=== PATIENT | male | born 2000 | race Caucasian/White ===

== ENCOUNTER → 2022-07-23 11:13 | Outpatient (BNVA) | payer OTHER, SELFPAY | PROVIDERS: Family Provider Family Medicine; PCP Family Medicine; Visit Provider Family Medicine | DX: Z13.6 Encounter for screening for cardiovascular disorders (principal); R60.0 Localized edema; M25.562 Pain in left knee; G89.29 Other chronic pain | CPT/HCPCS: 80053; 80061; 85025 ==

== ENCOUNTER 2022-09-03 16:16 | Emergency (ER) | payer OTHER, SELFPAY ==
[2022-09-03 16:38] VITALS: BP 150/89; PULSE 119; RESP 15; TEMP 37.4; O2SAT 97
--- NOTE | 2022-09-03 16:58 | XRR_ITS ---
PROCEDURE INFORMATION: Exam: XR Chest Exam date and time: 09/03/2022 5:12 PM Age: 22 years old Clinical indication: Chest wall pain; Additional info: Cough TECHNIQUE: Imaging protocol: Radiologic exam of the chest. Views: 1 view. COMPARISON: No relevant prior studies available. FINDINGS: Lungs: Unremarkable. No consolidation. Pleural spaces: Unremarkable. No pleural effusion. No pneumothorax. Heart/Mediastinum: Unremarkable. No cardiomegaly. Bones/joints: Unremarkable. XR/XR chest 1V portable [id number] IMPRESSION: No acute findings.
--- NOTE | 2022-09-03 16:59 | ED_ITS ---
HPI - Chest Pain General: Chief Complaint: Chest Pain Stated Complaint: chest pain, lightheaded and high BP Time Seen by Provider: 09/03/22 16:51 History of Present Illness: Patient comes in with cold symptoms including cough, congestion, fever, lightheadedness, and chest pain that started this morning. Describes the chest pain as sharp, intermittent, midsternal. States he woke up this morning not feeling well. Denies any sick contacts. Patient does not smoke, has no cardiac history, has no family history of coronary artery disease. Associated symptoms: Reports fever(s); Deny abdominal pain, dyspnea, nausea, palpitations or vomiting Review of Systems Const: Reports: fever(s) and body aches Eyes: Denies: change in vision or blurry vision ENMT: Denies: throat pain or odynophagia Card: Reports: chest pain; Denies: palpitations Resp: Reports: non-productive cough; Denies: dyspnea GI: Denies: abdominal pain, nausea or vomiting : Denies: flank pain or dysuria Musc: Denies: neck pain or back pain Skin/Breast: Denies: rash or pruritus Neuro: Reports: headache(s); Denies: numbness in extremities Psych: Denies: anxiety or change in appetite Endo: Denies: polyuria or excessive sweating PFSH ED PFSH: Medical History (Updated 09/03/22 @ 18:20 by Иван Raza MD) No significant past medical history Surgical History (Updated 07/23/22 @ 11:00 by Xiomara Thomason DO) History of tonsillectomy Social History Smoking and tobacco status: never smoked Physical Exam Const: COMMON NORMALS: no acute distress, patient oriented x3, healthy appearing and alert HENMT: COMMON NORMALS: normocephalic and atraumatic HEAD & SCALP: norm ocephalic and atraumatic Eye: COMMON NORMALS: Equal, round and reactive pupils present and EOMs intact bilaterally PUPIL: Yes Equal, round and reactive pupils present OTHER: Bilateral glassy eyed appearance Neck/C-Spine: COMMON NORMALS: full ROM and supple Resp: COMMON NORMALS: normal respiratory effort, No retractions and No use of accessory muscles Cardio: COMMON NORMALS: regular rhythm RHYTHM: regular rhythm OTHER: Tachycardia GI: COMMON NORMALS: Normal to inspection, nondistended, normoactive bowel sounds present, Soft to palpation and non-tender PALPATION: Yes Soft to palpation Back/Pelvis: COMMON NORMALS: thoracic and lumbar spine normal to inspection and no thoracic nor lumbar tenderness Extremity: COMMON NORMALS: normal to inspection and full ROM Neuro: COMMON NORMALS: patient oriented x3 SENSORIUM/ORIENTATION: Yes alert Psych: COMMON NORMALS: mental status grossly normal and cooperative Skin: COMMON NORMALS: no rashes or lesions noted and no wounds GENERAL SKIN EXAM: no rashes or lesions noted Course Vital Signs: Vital signs: Vital Signs Temperature 99.3 F 09/03/22 16:38 Pulse Rate 110 H 09/03/22 18:15 Respiratory Rate 16 09/03/22 18:15 Blood Pressure 120/89 09/03/22 18:15 Pulse Oximetry 99 09/03/22 18:15 Oxygen Delivery Me thod 09/03/22 18:15 MDM - Chest Pain Medical Decision Making Patient comes in with cold symptoms including cough, congestion, fever, lightheadedness, and chest pain that started this morning. Describes the chest pain as sharp, intermittent, midsternal. States he woke up this morning not feeling well. Denies any sick contacts. Patient does not smoke, has no cardiac history, has no family history of coronary artery disease. On physical exam he has bilateral glassy eyed appearance. Will check labs, give IV fluids, check x- ray, and reassess. On reassessment I talked to the patient about the test results. Encouraged aggressive fluid hydration, and discharged with precautions return for worsening or changing symptoms. Lab Data 09/03/22 17:02 09/03/22 17:02 Radiology Impressions Chest X-Ray 09/03/22 16:58 IMPRESSION: No acute findings. Laboratory Results WBC 7.6 10^3/uL (4.0-10.0) 09/03/22 17:02 RBC 4.97 10^6/uL (4.1-5.3) 09/03/22 17:02 Hgb 14.7 g/dL (11.7-16.6) 09/03/22 17:02 Hct 43.9 % (42.0-52.0) 09/03/22 17:02 MCV 88.3 fl (80-94) 09/03/22 17:02 MCH 29.6 pg (28.0-34.0) 09/03/22 17:02 MCHC 33.5 g/dL (30.0-36.0) 09/03/22 17:02 RDW 12.5 % (12.1-15.1) 09/03/22 17:02 Plt Count 220 10^3/cmm (130-400) 09/03/22 17:02 MPV 9.7 fL (7.4-10.4) 09/03/22 17:02 Neut % (Auto) 66.2 % 09/03/22 17:02 Lymph % (Auto) 20.9 % 09/03/22 17:02 [place] % (Auto) 7.8 % 09/03/22 17:02 Eos % (Auto) 4.2 % 09/03/22 17:02 Baso % (Auto) 0.5 % 09/03/22 17:02 Neut # (Auto) 4.99 10^3/uL (1.8-7.7) 09/03/22 17:02 Lymph # (Auto) 1.6 10^3/uL (0.8-4.8) 09/03/22 17:02 [place] # (Auto) 0.6 10^3/uL (0.2-0.9) 09/03/22 17:02 Eos # (Auto) 0.3 10^3/uL (0.0-0.8) 09/03/22 17:02 Baso # (Auto) 0.0 10^3/uL (0.0-0.1) 09/03/22 17:02 Nucleated RBC % (auto) 0 % 09/03/22 17:02 Nucleated RBCs # 0.0 /100WBC 09/03/22 17:02 Sodium 140 mmol/L (136-145) 09/03/22 17:02 Potassium 3.7 mmol/L (3.5-5.1) 09/03/22 17:02 Chloride 104 mmol/L (98-107) 09/03/22 17:02 Carbon Dioxide 26 mmol/L (22-29) 09/03/22 17:02 Anion Gap 13.7 (5-19) 09/03/22 17:02 BUN 9 mg/dL (6-20) 09/03/22 17:02 Creatinine 1.0 mg/dL (0.7-1.2) 09/03/22 17:02 GFR Calculation 92.6 mL/min (90-130) 09/03/22 17:02 Glucose 91 mg/dL (65-115) 09/03/22 17:02 Calculated Osmolality 288 mOsm/kg (285-295) 09/03/22 17:02 Calcium 9.4 mg/dL (8.5-10.5) 09/03/22 17:02 Total Bilirubin 0.5 mg/dL (0.15-1.2) 09/03/22 17:02 AST 40 U/L (0-40) 09/03/22 17:02 ALT 73 U/L (0-41) H 09/03/22 17:02 Alkaline Phosphatase 83 U/L (40-130) 09/03/22 17:02 Troponin T Baseline 6 ng/L (0-15) 09/03/22 17:02 Total Protein 7.3 g/dL (6.6-8.7) 09/03/22 17:02 Albumin 4.3 g/dL (3.5-5.2) 09/03/22 17:02 Globulin 3.0 g/dL (1.3-4.6) 09/03/22 17:02 Discharge Plan Discharge Patient Disposition: Home Clinical Impression: Viral illness Condition: Stable Prescriptions: No Action No Known Home Medications Discharge Orders: Discharge ED (Routine); Ordered 09/03/22 Ordered By: Иван Raza Referrals: Pooja Ricks MD [Primary Care Provider] - Stand Alone Forms: Work/School Release Coding Level of Care Code ED Certified Nurse Midwife for Chg Fwd Exam Comprehensive
--- NOTE | 2022-09-03 17:06 | ECG_ITS ---
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 Measurements Intervals [address] Rate: 114 P: 50 [place]: 190 QRS: 55 QRSD: 86 T: 42 QT: 319 QTc: 439 Interpretive Statements SINUS TACHYCARDIA No previous ECG available for comparison Electronically Signed On 09-04-2022 17:48:04 CELL STRIPPER FINAL by Naresh Rogers M.D. [email or web address]
[2022-09-03 17:12] LABS: Basophils % 0.5 %; Eosinophils # 0.3 10^3/uL (0.0-0.8); Eosinophils % 4.2 %; Hematocrit 43.9 % (42.0-52.0); Hemoglobin 14.7 g/dL (11.7-16.6); Lymphocytes # 1.6 10^3/uL (0.8-4.8); Lymphocytes % 20.9 %; Mean Corpuscular HGB Conc 33.5 g/dL (30.0-36.0); Mean Corpuscular Hemoglobin 29.6 pg (28.0-34.0); Mean Corpuscular Volume 88.3 fl (80-94); Mean Platelet Volume 9.7 fL (7.4-10.4); Monocytes # 0.6 10^3/uL (0.2-0.9); Monocytes % 7.8 %; Neutrophils # 4.99 10^3/uL (1.8-7.7); Neutrophils % 66.2 %; Nucleated Red Blood Cells % 0 %; Platelet Count 220 10^3/cmm (130-400); Red Blood Count 4.97 10^6/uL (4.1-5.3); Red Cell Distribution Width 12.5 % (12.1-15.1); White Blood Count 7.6 10^3/uL (4.0-10.0)
[2022-09-03 17:33] LABS: Troponin(5th) Baseline 6 ng/L (0-15)
[2022-09-03 17:35] LABS: Alanine Aminotransferase 73 U/L (0-41); Albumin Level 4.3 g/dL (3.5-5.2); Alkaline Phosphatase 83 U/L (40-130); Anion Gap 13.7 (5-19); Aspartate Amino Transferase 40 U/L (0-40); Blood Urea Nitrogen 9 mg/dL (6-20); Calcium 9.4 mg/dL (8.5-10.5); Carbon Dioxide 26 mmol/L (22-29); Chloride 104 mmol/L (98-107); Glomerular Filtration Rate 92.6 mL/min (90-130); Glucose 91 mg/dL (65-115); Osmolality Calculated 288 mOsm/kg (285-295); Potassium 3.7 mmol/L (3.5-5.1); Sodium 140 mmol/L (136-145); Total Bilirubin 0.5 mg/dL (0.15-1.2); Total Protein 7.3 g/dL (6.6-8.7)
[2022-09-03 18:15] VITALS: BP 120/89; PULSE 110; RESP 16; O2SAT 99
[2022-09-03] MEDS: sodium chloride 0.9% 1,000 ML 999 ML IV (18:24)
== END 2022-09-03 19:23 | disposition home or self-care (01) ==
PROVIDERS: Emergency Provider Emergency Medicine; PCP Family Medicine
DX: B34.9 Viral infection, unspecified (principal)
CPT/HCPCS: 71045; 80053; 84484; 85025; 93005; 96360; 99285; J7030

== ENCOUNTER 2022-10-01 08:29 | Outpatient (CLI) | payer OTHER, SELFPAY ==
--- NOTE | 2022-10-01 08:30 | US_ITS ---
WS: [id number] RIGHT UPPER QUADRANT ULTRASOUND HISTORY: elevated LFT COMPARISON: None available. Liver: 16.5 cm in length. Liver is normal size but there is marked attenuation throughout the liver w ith changes of hepatic steatosis. The entire liver cannot be adequately imaged. No bile duct dilatati on. Portal Vein: Not imaged. Gallbladder: Normally distended gallbladder with no stones or wall thickening. CBD: Not visualized. Pancreas: Not visualized. Right kidney: 12.7 cm in length. Normal size and echogenicity. No hydronephrosis or mass. Aorta and IVC: Unremarkable abdominal aorta and IVC. No ascites. US/US liver [id number] IMPRESSION: 1. Technically difficult and limited evaluation of the RIGHT upper quadrant du e to body habitus. 2. Marked hepatic steatosis. The entire liver is not well seen. 3. Portal vein not seen and neither is the common bile duct. 4. Negative gallbladder.
== END 2022-10-01 08:30 | disposition home or self-care (01) ==
PROVIDERS: PCP Family Medicine; Visit Provider Family Medicine
DX: R94.5 Abnormal results of liver function studies (principal); K76.0 Fatty (change of) liver, not elsewhere classified
CPT/HCPCS: 76705

== ENCOUNTER → 2025-04-22 10:52 | Outpatient (BNVA) | payer OTHER, SELFPAY | PROVIDERS: PCP Family Medicine; Visit Provider Family Medicine | DX: Z13.6 Encounter for screening for cardiovascular disorders (principal); L83 Acanthosis nigricans | CPT/HCPCS: 80053; 80061; 83036; 85025 ==